=== PATIENT | female | born 1955 | race Caucasian/White ===

== ENCOUNTER 2023-07-11 12:47 | Emergency (ER) | payer MEDICARE, BC ==
[~2023-07-11] VITALS: Ht 157.5 cm; Wt 113.6 kg
[2023-07-11 13:12] VITALS: BP 121/67; PULSE 99; RESP 18; TEMP 97.9; O2SAT 98
[2023-07-11] MEDS: dexamethasone sod phosphate 10mg/ml inj PO STA (13:29)
[2023-07-11 13:58] LABS: STREP A SCREEN POSITIVE (Neg)
[2023-07-11] MEDS ORDERED: AMOX500C2 PO (14:03)
[2023-07-11] MEDS ORDERED: LIDO20SO16 PO (14:03)
== END 2023-07-11 14:17 | disposition home or self-care (01) ==
LOC: ER 12:48
DX: J02.0 Streptococcal pharyngitis (principal); Z20.822 Contact with and (suspected) exposure to COVID-19; I10 Essential (primary) hypertension; Z88.1 Allergy status to other antibiotic agents; Z79.2 Long term (current) use of antibiotics
CPT/HCPCS: 36415; 87811; 87880; 99283; J1100